=== PATIENT | male | born 1955 | race Native Hawaiian/Other Pacific Islander ===

== ENCOUNTER 2016-02-29 05:19 | Emergency (ER) | payer BC ==
[~2016-02-29] VITALS: Ht 170.2 cm; Wt 102.1 kg
[2016-02-29 05:43] LABS: PLATELET COUNT 287 K/uL (142-355)
[2016-02-29 05:48] LABS: POTASSIUM 3.9 mmol/L (3.6-5.2); SODIUM 132 mmol/L (136-145)
[2016-02-29 06:09] LABS: PARTIAL THROMBOPLASTIN TIME 26.6 SECONDS (24.5-33.6)
[2016-02-29] MEDS ORDERED: FOLI1TAB26 PO (06:26)
[2016-02-29] MEDS ORDERED: HYDR200T3 PO ×2 (06:26→06:33)
[2016-02-29] MEDS ORDERED: ASPIRIN325 M1 OR (06:27)
[2016-02-29] MEDS ORDERED: MONT10TA PO (06:28)
[2016-02-29] MEDS ORDERED: METHO2.5 PO (06:29)
[2016-02-29] MEDS ORDERED: ABAT250I IV (06:29)
[2016-02-29] MEDS ORDERED: VITAMIN D31000 UNI3 OR (06:30)
[2016-02-29] MEDS ORDERED: CENTRUM SILVE1 OR (06:30)
[2016-02-29] MEDS ORDERED: ZINC50 MG OR (06:31)
[2016-02-29] MEDS ORDERED: RECLAST5 MG/100 M IV (06:31)
[2016-02-29] MEDS ORDERED: ACET-689 PO (09:35)
[2016-02-29 09:41] VITALS: BP 148/79; TEMP 98.5
== END 2016-02-29 09:41 | disposition home or self-care (01) ==
LOC: ED 05:19
PROVIDERS: Emergency Medicine
DX: R07.89 Other chest pain (principal); M47.894 Other spondylosis, thoracic region
CPT/HCPCS: 36415; 80053; 82550; 84484; 85027; 85379; 85610; 85730; 86318; 93005; 96374; 96375; 99284; J1885; J2270; Q9963

== ENCOUNTER 2016-03-10 08:17 | Outpatient (CLI) | payer BC ==
[~2016-03-10 08:17] MED LIST: ABAT250I IV; ACET-689 PO; ASPIRIN325 M1 OR; CENTRUM SILVE1 OR; FOLI1TAB26 PO; HYDR200T3 PO; METHO2.5 PO; MONT10TA PO; RECLAST5 MG/100 M IV; VITAMIN D31000 UNI3 OR; ZINC50 MG OR
[2016-03-10 08:30] VITALS: BP 140/87; TEMP 98.5
== END 2016-03-10 22:08 | disposition home or self-care (01) ==
LOC: INF 08:17
DX: M06.89 Other specified rheumatoid arthritis, multiple sites (principal)
CPT/HCPCS: 96365; J0129

== ENCOUNTER 2016-04-07 08:10 | Outpatient (CLI) | payer BC ==
[2016-04-07 08:15] VITALS: BP 138/85; TEMP 98.2
== END 2016-04-07 23:00 | disposition home or self-care (01) ==
LOC: INF 08:10
DX: M06.89 Other specified rheumatoid arthritis, multiple sites (principal)
CPT/HCPCS: 96365

== ENCOUNTER 2016-05-05 07:55 | Outpatient (CLI) | payer BC ==
[~2016-05-05] VITALS: Ht 170.2 cm; Wt 102.1 kg
[2016-05-05 08:00] VITALS: BP 140/80; TEMP 98.3
== END 2016-05-05 09:34 | disposition home or self-care (01) ==
LOC: INF 07:55
DX: M06.89 Other specified rheumatoid arthritis, multiple sites (principal)
CPT/HCPCS: 96365

== ENCOUNTER 2016-06-02 08:06 | Outpatient (CLI) | payer BC | END 2016-06-02 19:09 | disposition home or self-care (01) | LOC: INF 08:06 | DX: M06.89 Other specified rheumatoid arthritis, multiple sites (principal) ==

== ENCOUNTER 2016-06-30 07:43 | Outpatient (CLI) | payer BC ==
[2016-06-30 08:20] VITALS: BP 138/85; TEMP 98.4
== END 2016-06-30 19:03 | disposition home or self-care (01) ==
LOC: INF 07:43
DX: M06.89 Other specified rheumatoid arthritis, multiple sites (principal)
CPT/HCPCS: 96365

== ENCOUNTER 2016-07-30 10:48 | Outpatient (CLI) | payer BC ==
[~2016-07-30] VITALS: Ht 170.2 cm; Wt 99.8 kg
[2016-07-30 10:55] VITALS: BP 145/82; TEMP 98.2
[2016-07-30 12:15] VITALS: BP 125/73; TEMP 98.2
== END 2016-07-30 12:15 | disposition home or self-care (01) ==
LOC: INF 10:48
DX: M06.89 Other specified rheumatoid arthritis, multiple sites (principal)
CPT/HCPCS: 96365

== ENCOUNTER 2016-09-02 07:44 | Outpatient (CLI) | payer BC ==
[2016-09-02 08:05] VITALS: BP 135/81; TEMP 98.2
[2016-09-02 09:25] VITALS: BP 107/70
== END 2016-09-02 19:08 | disposition home or self-care (01) ==
LOC: INF 07:44
DX: M06.89 Other specified rheumatoid arthritis, multiple sites (principal)
CPT/HCPCS: 96365

== ENCOUNTER 2016-09-30 07:49 | Outpatient (CLI) | payer BC ==
[2016-09-30 09:25] VITALS: BP 129/79; TEMP 97.4
== END 2016-09-30 09:25 | disposition home or self-care (01) ==
LOC: INF 07:49
DX: M06.89 Other specified rheumatoid arthritis, multiple sites (principal)
CPT/HCPCS: 96365

== ENCOUNTER 2016-10-28 07:48 | Outpatient (CLI) | payer BC ==
[~2016-10-28] VITALS: Ht 170.2 cm; Wt 102.1 kg
[2016-10-28 07:55] VITALS: BP 139/78; TEMP 97.9
[2016-10-28 09:15] VITALS: BP 140/54; TEMP 97.6
== END 2016-10-28 09:20 | disposition home or self-care (01) ==
LOC: INF 07:48
DX: M06.89 Other specified rheumatoid arthritis, multiple sites (principal)
CPT/HCPCS: 96365; J0129

== ENCOUNTER 2016-11-26 07:53 | Outpatient (CLI) | payer BC ==
[~2016-11-26] VITALS: Ht 170.2 cm; Wt 102.1 kg
[2016-11-26 08:15] VITALS: BP 123/90; TEMP 98.7
[2016-11-26 09:40] VITALS: BP 136/81
== END 2016-11-26 09:40 | disposition home or self-care (01) ==
LOC: INF 07:53
DX: M06.89 Other specified rheumatoid arthritis, multiple sites (principal)
CPT/HCPCS: 96365

== ENCOUNTER 2016-12-24 07:48 | Outpatient (CLI) | payer BC ==
[~2016-12-24] VITALS: Ht 170.2 cm; Wt 93.4 kg
[2016-12-24 07:55] VITALS: BP 137/92; TEMP 97.8
[2016-12-24 09:45] VITALS: BP 134/88
== END 2016-12-24 09:45 | disposition home or self-care (01) ==
LOC: INF 07:48
DX: M06.89 Other specified rheumatoid arthritis, multiple sites (principal)
CPT/HCPCS: 96365; J0129

== ENCOUNTER 2017-02-10 13:55 | Outpatient (CLI) | payer BC ==
[2017-02-10 14:36] LABS: PLATELET COUNT 306 K/uL (142-355)
[2017-02-10 14:50] LABS: POTASSIUM 3.9 mmol/L (3.6-5.2); SODIUM 135 mmol/L (136-145)
== END 2017-02-10 18:04 | disposition home or self-care (01) ==
LOC: LABW 13:55
PROVIDERS: Internal Medicine Rheumatology
DX: M06.89 Other specified rheumatoid arthritis, multiple sites (principal); Z79.899 Other long term (current) drug therapy; Z51.81 Encounter for therapeutic drug level monitoring; G89.4 Chronic pain syndrome; M16.12 Unilateral primary osteoarthritis, left hip
CPT/HCPCS: 36415; 80053; 85027; 86140

== ENCOUNTER 2017-02-20 08:02 | Outpatient (CLI) | payer BC ==
[~2017-02-20] VITALS: Ht 152.4 cm; Wt 1.8 kg
== END 2017-02-20 22:12 | disposition home or self-care (01) ==
LOC: INF 08:02
DX: M06.89 Other specified rheumatoid arthritis, multiple sites (principal)
CPT/HCPCS: 96365

== ENCOUNTER 2017-04-23 08:19 | Outpatient (CLI) | payer BC ==
[~2017-04-23] VITALS: Ht 170.2 cm; Wt 97.5 kg
== END 2017-04-23 22:20 | disposition home or self-care (01) ==
LOC: INF 08:19
DX: M06.89 Other specified rheumatoid arthritis, multiple sites (principal)
CPT/HCPCS: 96365; J0129

== ENCOUNTER 2017-06-18 07:56 | Outpatient (CLI) | payer BC ==
[~2017-06-18] VITALS: Ht 170.2 cm; Wt 97.5 kg
[2017-06-18 08:00] VITALS: BP 135/79; TEMP 99.2
[2017-06-18 10:15] VITALS: BP 140/79; TEMP 97.9
== END 2017-06-18 19:24 | disposition home or self-care (01) ==
LOC: INF 07:56
DX: M06.89 Other specified rheumatoid arthritis, multiple sites (principal)
CPT/HCPCS: 96365; J0129

== ENCOUNTER 2017-06-30 12:48 | Outpatient (CLI) | payer BC ==
[2017-06-30 13:34] LABS: PLATELET COUNT 369 K/uL (142-355)
[2017-06-30 14:55] LABS: POTASSIUM 4.4 mmol/L (3.6-5.2)
== END 2017-06-30 19:59 | disposition home or self-care (01) ==
LOC: LABW 12:48
PROVIDERS: Internal Medicine Rheumatology
DX: M06.89 Other specified rheumatoid arthritis, multiple sites (principal); Z79.899 Other long term (current) drug therapy; Z51.81 Encounter for therapeutic drug level monitoring
CPT/HCPCS: 36415; 80053; 85027; 86140

== ENCOUNTER 2017-07-16 07:56 | Outpatient (CLI) | payer BC ==
[~2017-07-16] VITALS: Ht 162.6 cm; Wt 54.4 kg
== END 2017-07-16 19:08 | disposition home or self-care (01) ==
LOC: INF 07:56
DX: M06.89 Other specified rheumatoid arthritis, multiple sites (principal)
CPT/HCPCS: 96365

== ENCOUNTER 2017-08-03 14:04 | Outpatient (CLI) | payer BC ==
[2017-08-03 14:34] LABS: POTASSIUM 4.1 mmol/L (3.6-5.2)
[2017-08-03 14:38] LABS: PLATELET COUNT 352 K/uL (142-355)
== END 2017-08-03 19:51 | disposition home or self-care (01) ==
LOC: LABW 14:04
PROVIDERS: Internal Medicine Rheumatology
DX: M06.89 Other specified rheumatoid arthritis, multiple sites (principal); Z79.899 Other long term (current) drug therapy; Z51.81 Encounter for therapeutic drug level monitoring
CPT/HCPCS: 36415; 80053; 85027; 86140

== ENCOUNTER 2017-08-13 09:56 | Outpatient (CLI) | payer BC ==
[~2017-08-13] VITALS: Ht 152.4 cm; Wt 1.8 kg
== END 2017-08-13 20:41 | disposition home or self-care (01) ==
LOC: INF 09:56
DX: M06.89 Other specified rheumatoid arthritis, multiple sites (principal)
CPT/HCPCS: 96365

== ENCOUNTER 2017-09-17 14:10 | Outpatient (CLI) | payer BC ==
[2017-09-17 14:44] LABS: PLATELET COUNT 218 K/uL (142-355)
== END 2017-09-17 19:53 | disposition home or self-care (01) ==
LOC: LABW 14:10 → EDBD 14:10 → LABW 19:53
PROVIDERS: Internal Medicine Rheumatology
DX: M06.89 Other specified rheumatoid arthritis, multiple sites (principal); Z79.899 Other long term (current) drug therapy; Z51.81 Encounter for therapeutic drug level monitoring
CPT/HCPCS: 36415; 80053; 85027; 86140

== ENCOUNTER 2018-04-28 09:41 | Outpatient (CLI) | payer OTHER, BC ==
[2018-04-28 10:00] LABS: PLATELET COUNT 324 K/uL (142-355)
[2018-04-28 10:14] LABS: POTASSIUM 4.3 mmol/L (3.6-5.2)
== END 2018-04-28 19:29 | disposition home or self-care (01) ==
LOC: LABW 09:41
PROVIDERS: Internal Medicine Rheumatology
DX: G25.81 Restless legs syndrome (principal); G89.4 Chronic pain syndrome; M16.12 Unilateral primary osteoarthritis, left hip; M06.89 Other specified rheumatoid arthritis, multiple sites; Z79.899 Other long term (current) drug therapy
CPT/HCPCS: 36415; 80053; 85027; 86140

== ENCOUNTER 2018-11-30 11:14 | Outpatient (CLI) | payer OTHER, BC ==
[2018-11-30 11:54] LABS: POTASSIUM 4.3 mmol/L (3.6-5.2)
[2018-11-30 11:57] LABS: PLATELET COUNT 399 K/uL (142-355)
== END 2018-11-30 20:12 | disposition home or self-care (01) ==
LOC: LABW 11:14
PROVIDERS: Internal Medicine Rheumatology
DX: G25.81 Restless legs syndrome (principal); G89.4 Chronic pain syndrome; M16.12 Unilateral primary osteoarthritis, left hip; M06.89 Other specified rheumatoid arthritis, multiple sites; Z79.899 Other long term (current) drug therapy
CPT/HCPCS: 36415; 80053; 85027; 86140

== ENCOUNTER 2019-04-06 15:01 | Outpatient (CLI) | payer OTHER, BC ==
[2019-04-06 15:21] LABS: PLATELET COUNT 267 K/uL (142-355)
[2019-04-06 15:33] LABS: POTASSIUM 3.9 mmol/L (3.6-5.2)
== END 2019-04-06 20:31 | disposition home or self-care (01) ==
LOC: LABW 15:01
PROVIDERS: Internal Medicine Rheumatology
DX: M06.89 Other specified rheumatoid arthritis, multiple sites (principal); Z79.899 Other long term (current) drug therapy; G89.4 Chronic pain syndrome; M16.12 Unilateral primary osteoarthritis, left hip; G25.81 Restless legs syndrome
CPT/HCPCS: 36415; 80053; 85027; 86140

== ENCOUNTER 2019-07-05 07:37 | Outpatient (CLI) | payer OTHER, BC ==
[2019-07-05 08:27] LABS: PLATELET COUNT 315 K/uL (142-355)
[2019-07-05 08:40] LABS: POTASSIUM 3.8 mmol/L (3.6-5.2)
== END 2019-07-05 22:22 | disposition home or self-care (01) ==
LOC: LABW 07:37
PROVIDERS: Internal Medicine Rheumatology
DX: M06.89 Other specified rheumatoid arthritis, multiple sites (principal); Z79.899 Other long term (current) drug therapy; G89.4 Chronic pain syndrome; M16.12 Unilateral primary osteoarthritis, left hip; G25.81 Restless legs syndrome
CPT/HCPCS: 36415; 80053; 85027; 86140

== ENCOUNTER 2019-10-20 14:05 | Outpatient (CLI) | payer OTHER, BC ==
[2019-10-20 14:40] LABS: POTASSIUM 4.2 mmol/L (3.6-5.2)
[2019-10-20 15:10] LABS: PLATELET COUNT 306 K/uL (142-355)
== END 2019-10-20 22:04 | disposition home or self-care (01) ==
LOC: LABW 14:05
PROVIDERS: Internal Medicine Rheumatology
DX: M06.89 Other specified rheumatoid arthritis, multiple sites (principal); Z79.899 Other long term (current) drug therapy; G25.81 Restless legs syndrome
CPT/HCPCS: 36415; 80053; 85027; 86140

== ENCOUNTER 2021-10-18 12:33 | Outpatient (CLI) | payer BC | END 2021-10-18 21:05 | disposition home or self-care (01) | LOC: RAD 12:33 → EDBD 13:00 → RAD 21:05 | PROVIDERS: ATTEND Internal Medicine Rheumatology | DX: Z13.820 Encounter for screening for osteoporosis (principal); M85.88 Other specified disorders of bone density and structure, other site ==

== ENCOUNTER → 2021-12-24 | Outpatient (CLI) | payer BC ==
[2021-12-24 08:51] LABS: PLATELET COUNT 331 K/uL (142-355)
== END ==
LOC: LABW 08:26
PROVIDERS: ATTEND Internal Medicine Rheumatology
DX: M06.89 Other specified rheumatoid arthritis, multiple sites (principal); Z79.899 Other long term (current) drug therapy
CPT/HCPCS: 36415; 80053; 85027; 86140